=== PATIENT | female | born 1955 | race Caucasian/White ===

== ENCOUNTER 2019-04-06 09:40 | Day surgery (SDC) | payer OTHER, SELFPAY ==
[2019-04-06] VITALS (7 sets, daily range): BP systolic 96–116; BP diastolic 46–63; PULSE 60–95; RESP 10–20; TEMP 36.4–36.9; O2SAT 99–100; BMI 22.8
--- NOTE | 2019-04-06 | PATH_ITS ---
[facility] Accession Number: [id number] . 01 Material submitted: . PART A: colon - FLAT COLON POLYP AT 30 CM PART B: colon - COLON POLYP AT 20 CM . 01 Clinical history: . SCREENING COLONOSCOPY . 02 Diagnosis: A. Colon, Flat Polyp at 30 cm, Biopsy: Sessile serrated adenoma. . B. Colon, Polyp at 20 cm, Biopsy: Sessile serrated adenoma. MRV 04/09/2019 1112 Local . 02 Electronically signed: . Stacie Alarcon MD, Pathologist NPI- [id number] . 01 Gross description: . Part A: FLAT COLON POLYP AT 30 CM: Received in formalin are 3 fragment(s) of rutledge, soft tissue measuring 0.4 x 0.2 x 0.1 cm to 0.2 x 0.2 x 0.1 cm submitted entirely in 1 cassette(s) Part B: COLON POLYP AT 20 CM: Received in formalin are 2 fragment(s) of rutledge, soft tissue measuring 0.3 x 0.2 x 0.2 cm to 0.2 x 0.2 x 0.2 cm submitted entirely in 1 cassette(s) /QBJ 04/07/2019 0022 Local . 02 Pathologist provided ICD-10: D12.6 . 02 CPT . 437832, [id number] Performed at: 01 [facility] [address] [facility], [place], [place] [id number] MD Kennedy Szymanski MD Phone: [phone] Performed at: 02 [facility] [address] [place], [place] [id number] MD Stacie Alarcon MD Phone: [phone]
[2019-04-06] MEDS: SODIUM CHLORIDE 0.9% 1,000 ML 200 ML IV (10:04)
--- NOTE | 2019-04-06 10:22 | PM.HP.1 ---
History of Present Illness History of Present Illness Date Patient Seen: 04/06/19 Time Patient Seen: 10:22 Chief complaint: 50010 SCREENING COLONOSCOPY Narrative: This is a 63-year-old woman with history of colon polyps found on previous colonoscopies. She denies any melena or hematochezia. Her last colonoscopy was 5 years ago, and she is due for repeat surveillance colonoscopy. She has hypothyroidism for which she takes levothyroxine. She is otherwise healthy and denies any active medical problems. ROS: Thirteen system review is otherwise negative other than as mentioned below and in HPI. PE: GENERAL: Well groomed and cooperative. Appears stated age. Answers questions promptly and appropriately. Vital signs noted. HENT: Normocephalic, atraumatic. Hearing intact. Oral mucosa is pink and moist. EYES: Conjunctiva pink, sclera white, no periorbital swelling. CARDIOVASCULAR: Regular rate. No pedal edema. RESPIRATORY: Non-tachypneic, breathing comfortably on room air. GASTROINTESTINAL: Abdomen soft and non-distended GENITALURINARY: No flank tenderness. MUSCULOSKELETAL: Equal tone and mass bilaterally. SKIN: Warm, dry, soft, appropriate color for ethnicity. No other lesions, rashes, or wounds. NEURO: Alert and Oriented X 3. No gross sensory deficits, or cognitive issues. PSYCH: Appropriate affect and mood. Patient History Family & Social History Social History: household members spouse Meds Home Medications and Allergies Home Medications Medication Instructions Recorded Confirmed Type acyclovir 400 mg PO DAILY 04/06/19 04/06/19 History levothyroxine 75 mcg PO DAILY 04/06/19 04/06/19 History Allergies Allergy/AdvReac Type Severity Reaction Status Date / Time antibiotic from dentist AdvReac Diarrhea Uncoded 04/06/19 09:55 Exam Vital Signs (past 8 hours): - 04/06/19 09:56 Temperature 97.6 F Pulse Rate 95 H Respiratory Rate 20 Blood Pressure 116/63 Pulse Oximetry 99 Oxygen Delivery Method Room Air Assessment & Plan Assessment & Plan narrative: This is a 63-year-old woman with history of polyps. She is here for 5 year surveillance colonoscopy. Risks and benefits of colonoscopy and polypectomy were discussed including risk of bleeding, perforation, need for additional procedures, risks of anesthesia. Patient desires to proceed with her colonoscopy procedure. Time Spent With Patient Time with patient: 15-24 minutes Quality VTE Deep Vein Thrombosis/Pulmonary Embolism Present on Admission: No
[2019-04-06] MEDS: MIDAZOLAM 5 MG/5 ML VIAL IV (10:40)
[2019-04-06] MEDS: fentaNYL 250 MCG/5 ML INJ IV (10:40)
--- NOTE | 2019-04-06 10:59 | PM.OP.ENDO ---
Operative Date/Time/Diagnoses Date of procedure: 04/06/19 Time of procedure: 10:59 Pre-op diagnosis: Personal history of colon polyps Post-op diagnosis: same Procedure & Clinicians Study performed: Surveillance colonoscopy, polypectomy x2 with cold forceps Same procedure as scheduled: Yes Indications: Personal history of colon polyps Surgeon: Sahara Kellogg Procedure Notes SCOAP/Timeout: Performed Procedure in detail: The patient was brought to the room and placed in left lateral decubitus position with all bony prominences padded. A time-out was performed and then the patient was given procedural sedation starting with 4 mg of Versed and 100 mcg of fentanyl. Total of 5 mg of Versed and 150 micro g of fentanyl were given during the entire procedure. Vitals were monitored throughout the procedure and remained stable. Once adequately sedated the procedure was begun. A rectal exam was performed revealing no abnormalities. The colonoscope was then introduced to the rectum and advanced to the cecum in the usual fashion. The cecum was identified by the appendiceal orifice, the mucosal tri-fold, and the ileocecal valve. The scope was then retracted while rotating side to side and examining each mucosal fold. 2 polyps were removed, 1 at 30 cm and 1 at 20 cm. Both were flat 5 mm polyps. At the conclusion of the procedure retroflexion was performed and small grade 1-2 internal hemorrhoids without stigmata of bleeding were seen. The scope was then withdrawn from the rectum the procedure was concluded. The patient tolerated the procedure well and was transferred to the PACU in stable condition. Scope withdrawal time: 12 Sedation minutes: 23 Findings: polyp Specimen(s): other (Two 5 mm flat polyps from 30 cm and 20 cm) Complications: none Impression: Two polyps Post-procedure Recommendations: Colonscopy in 5 years (For surveillance of polyps, may change depending on pathology results) Follow up: as needed Disposition: PACU
== END 2019-04-06 11:44 | disposition home or self-care (01) ==
PROVIDERS: PCP Family Medicine Geriatric Medicine; Visit Provider Surgery
PROC: 0DJD8ZZ Inspection of Lower Intestinal Tract, Via Natural or Artificial Opening Endoscopic (ICD-10-PCS; CPT 45378; principal; 2019-04-06 10:00)
DX: Z12.11 Encounter for screening for malignant neoplasm of colon (principal); Z86.010 Personal history of colon polyps; E03.9 Hypothyroidism, unspecified; K64.0 First degree hemorrhoids; D12.6 Benign neoplasm of colon, unspecified
CPT/HCPCS: 45380; 99152; J2250; J3010

== ENCOUNTER → 2023-03-29 15:36 | Outpatient (CLI) | payer MEDICARE, BC, SELFPAY ==
--- NOTE | 2023-03-29 | DI.MRI.S_ITS ---
PROCEDURE: MR CERVICAL SPINE WO CON INDICATIONS: Radiculopathy, cervical region TECHNIQUE: Noncontrast sagittal T1 spin echo and T2 fast spin echo, sagittal STIR, foraminal oblique sagittal T2 fast spin echo, and axial gradient echo or T2 fast spin echo through the cervical spine. COMPARISON: None. FINDINGS: Image quality: Excellent. Alignment and Curvature: There is normal bony alignment. Bone Marrow: Marrow demonstrates normal overall signal. Spinal Cord: Visualized spinal cord has normal size and signal. No cerebellar tonsillar herniation. Paraspinous Soft Tissues: No paravertebral masses. Prevertebral soft tissues are normal in thickness. C2-C3: Normal appearance. C3-C4: The disc height is well-preserved. Loss of disc signal is seen at this level. Complex mild to moderate facet hypertrophy is seen. Mild to moderate bilateral neural foraminal narrowing is seen. No central canal narrowing is seen. C4-C5: The disc height and disk signal are relatively well-preserved. Mild to moderate disc osteophyte complex is seen. Mild to moderate facet hypertrophy is seen. There is moderate right-sided and mild left-sided neural foraminal narrowing. No central canal narrowing is seen. C5-C6: The disc height is well-preserved. Loss of disc signal is seen at this level. Moderate generalized disc osteophyte complex is seen. Mild to moderate facet hypertrophy is seen. Mild to moderate bilateral neural foraminal narrowing is seen. Mild central canal narrowing is seen. C6-C7: Moderate loss of disc height is seen. Loss of disc signal is seen. Moderate generalized disc osteophyte complex is seen. There is a mild central disc osteophyte protrusion. Mild to moderate facet hypertrophy is seen. There is moderate right-sided and [id number] left-sided neural foraminal narrowing. Macrophage mild central C7-T1: Normal appearance. IMPRESSION: Multiple levels of cervical spine degenerative change can be seen, which are overall worst at the C6-C7 level. Dictated by: Luis Reyes M.D. on 03/29/2023 at 17:24 Approved by: Luis Reyes M.D. on 03/29/2023 at 17:29
== END ==
PROVIDERS: PCP Physician Assistant Medical; Referring Provider Physician Assistant Medical; Visit Provider Physician Assistant Medical
DX: M47.22 Other spondylosis with radiculopathy, cervical region
CPT/HCPCS: 72141